=== PATIENT | female | born 1945 | race Caucasian/White ===

== ENCOUNTER 2018-10-07 14:47 | Emergency (ER) | payer MEDICARE, OTHER ==
[~2018-10-07] VITALS: Ht 165.1 cm; Wt 81.7 kg
[2018-10-07] MEDS ORDERED: NORCO 5-325 TA1 EAC1 PO (15:35)
[2018-10-07] MEDS ORDERED: ZOFRAN ODT4 MG PO (15:35)
[2018-10-07] MEDS ORDERED: IBUPROFEN 800800 MG PO (15:35)
[2018-10-07 16:34] VITALS: BP 97/79
== END 2018-10-07 16:35 | disposition home or self-care (01) ==
LOC: M.ERS 14:47
DX: S42.291A Other displaced fracture of upper end of right humerus, initial encounter for closed fracture (principal); Z88.0 Allergy status to penicillin; W01.0XXA Fall on same level from slipping, tripping and stumbling without subsequent striking against object, initial encounter; Y93.89 Activity, other specified; Y92.89 Other specified places as the place of occurrence of the external cause; Y99.8 Other external cause status